=== PATIENT | male | born 1980 | race Caucasian/White ===

== ENCOUNTER 2016-12-15 13:51 | Emergency (ER) | payer SELFPAY ==
[~2016-12-15] VITALS: Ht 180.3 cm; Wt 115.0 kg
[2016-12-15 13:55] VITALS: BP 146/84; PULSE 87; RESP 16; TEMP 98.1; O2SAT 98
--- NOTE | 2016-12-15 14:29 | PD ---
HPI . left thumb possible trigger finger Chief Complaint: Injury Time Seen by Provider: 14:29 Travel History International Travel<30 days: No Contact w/Intl Traveler<30days: No Traveled to known affect area: No History of Present Illness HPI 36 yr old male here with c/o left thumb trigger finger. He is wanting an xray. He tells me it hurts and he doesn't know what to do with it. He denies any recent trauma or injury. I explained to patient there isn't much I can do. He will need to f/u with PCP and see hand surgery. PFSH Past Medical History Medical History: Denies Significant Hx Cancer: No Cardiovascular Problems: Yes (heart surgery as a child) Diabetes: No Glaucoma: No Hepatitis: No Hiatal Hernia: No Hypertension: No Thyroid Disease: No Tetanus Vaccination: < 5 Years Influenza Vaccination: No Past Surgical History Abdominal Surgery: Yes (IVC FILTER) Cardiac Surgery: Yes (AGE [age] OPEN HEART SURGERY) Cholecystectomy: Yes Ear Surgery: No Endocrine Surgery: No Eye Surgery: No Genitourinary Surgery: No Oral Surgery: Yes (CLOSED REDUCTION FACIAL FRACTURE WITH WIRE) Thoracic Surgery: Yes (RIGHT THORACOTOMY WITH CHEST TUBE) Social History Alcohol Use: No Tobacco Use: Yes (OCC) Substance Use: No Allergies-Medications (Allergen,Severity, Reaction): Coded Allergies: Codeine (Verified Allergy, Unknown, 12/15/16) Reported Meds & Prescriptions Reported Meds & Active Scripts Active No Active Prescriptions or Reported Medications Review of Systems General / Constitutional: No: Fever Eyes: No: Visual changes HENT: No: Headaches Cardiovascular: No: Chest Pain or Discomfort Respiratory: No: Shortness of Breath Gastrointestinal: No: Abdominal Pain Genitourinary: No: Dysuria Musculoskeletal: Positive: Pain (left thumb pain) Skin: No Rash Neurologic: No: Weakness Psychiatric: No: Depression Endocrine: No: Polydipsia Hematologic/Lymphatic: No: Easy Bruising Physical Exam Narrative GENERAL: AAO x 3, no acute distress, Well-nourished, well-developed patient. SKIN: Warm and dry. No visible rashes or bruising. HEAD: Normocephalic and atraumatic. EYES: No scleral icterus. No injection or drainage. ENT: No nasal drainage noted. Mucous membranes pink. Airway patent. NECK: Supple, trachea midline. No JVD. CARDIOVASCULAR: Regular rate and rhythm without murmurs, gallops, or rubs. RESPIRATORY: Breath sounds equal bilaterally. No accessory muscle use. No rhonchi or rales. GASTROINTESTINAL: Abdomen soft, non-tender, nondistended. EXTREMITIES: No cyanosis or edema. Left hand thumb without any evidence of fracture or dislocation. Joint moves freely. Some cracking with movement. BACK: Nontender without obvious deformity. No CVA tenderness. PSYCH: AAO x 3, normal affect. Data Data Last Documented VS Vital Signs Date Time Temp Pulse Resp B/P Pulse Ox O2 Delivery O2 Flow Rate FiO2 12/15/16 14:17 Room Air 12/15/16 13:55 98.1 87 16 146/84 98 MDM Medical Decision Making Medical Screen Exam Complete: Yes Emergency Medical Condition: No Medical Record Reviewed: Yes Differential Diagnosis trigger finger, OA, less likely fracture or dislocation Narrative Course A medical screening exam was performed: At the time of evaluation the presenting medical condition was determined not to be of an emergent nature. The patient was given the option of receiving additional care, but declined. Patient was given options for additional community resources from which to obtain care. The Patient Has Been advised to seek medical attention for their presenting complaint. The patient has been advised to return to the ER at any time if an emergent condition develops. Diagnosis Primary Impression: Thumb pain Qualified Code: M79.645 - Thumb pain, left Scripts No Active Prescriptions or Reported Meds Condition: Stable Jacqui Sheehan Dec 15, 2016 14:29
== END 2016-12-15 14:49 | disposition left against medical advice (07) ==
LOC: NEPB 13:51
DX: M79.645 Pain in left finger(s) (principal)
CPT/HCPCS: 99281